=== PATIENT | female | born 2000 | race Caucasian/White ===

== ENCOUNTER 2021-03-30 07:02 | Emergency (ER) | payer BC, SELFPAY ==
--- NOTE | ~2021-03-30 | CT_ITS ---
EXAMINATION: CT ABDOMEN AND PELVIS WITHOUT CONTRAST CLINICAL INFORMATION: Right lower quadrant pain COMPARISON: None TECHNIQUE: Multidetector volumetric imaging was performed from the superior aspect of the liver through the pubic symphysis. Sagittal and coronal reformatted images were obtained on the technologist's workstation. This CT examination was performed using dose optimization techniques as appropriate, variously including the following: *Automated exposure control *Adjustment of mA and/or kV according to patient size (this includes techniques or standardized protocols for targeted exams where dose is matched to indication/reason for exam; i.e. extremities or head) *Use of iterative reconstruction technique DLP: 390 mGy-cm FINDINGS: LUNG BASES: The visualized lung bases are unremarkable. There is minimal linear atelectasis present at the left base. No pleural or pericardial effusion. LIVER, GALLBLADDER, AND BILIARY TREE: The liver is normal in size, shape, and attenuation. No focal hepatic lesion or biliary ductal dilatation is present. The gallbladder is unremarkable with no evidence of radiopaque gallstones, gallbladder wall thickening, or obvious pericholecystic inflammatory changes. PANCREAS: Unremarkable. SPLEEN: Unremarkable. Small accessory spleen present. ADRENAL GLANDS: Unremarkable. KIDNEYS AND URETERS: The kidneys are normal in size, shape, and attenuation. No hydronephrosis, hydroureter, or calculi seen. No perinephric stranding. BLADDER: Unremarkable. GASTROINTESTINAL TRACT: The small and large bowel are unremarkable. The appendix is unremarkable. No free air identified. There is a small amount of free fluid seen about the pelvis. ABDOMINAL WALL: No significant hernia is appreciated. LYMPH NODES: Normal. VASCULAR: Unremarkable. PELVIC VISCERA: There is a small amount of free fluid seen within the pelvis. No significant abnormality of the adnexa identified. OSSEOUS STRUCTURES: Unremarkable. CT/CT abdomen pelvis wo con IMPRESSION: Small amount of free fluid seen within the pelvis. No evidence of obstructive uropathy. No evidence of acute appendicitis. Cannot exclude ruptured adnexal cyst as source of pain and small amount of fluid within the pelvis. Fleischner guidelines were followed.
[2021-03-30 07:08] VITALS: BP 133/84; PULSE 119; RESP 19; TEMP 37.5; O2SAT 98; BMI 22.0
--- NOTE | 2021-03-30 07:46 | ED_ITS ---
HPI - Abdominal Pain General Chief Complaint: Abdominal Pain Stated Complaint: abd pain Time Seen by Provider: 03/30/21 07:24 Source: patient Mode of arrival: ambulatory Limitations: no limitations History of Present Illness HPI narrative: 20-year-old female came in for evaluation of abdominal pain. Right abdominal pain started last night, pain is radiating to the carter lower abdomen, pain is described as dull aching pain, moderate in severity 09/25, patient also been having frequency and painful urination, patient take her own left over Bactrim antibiotic and was seen by her PCP yesterday urine culture was taking and patient did not have antibiotic until the culture come back. Patient declined fever, chills, nausea, vomiting, or diarrhea. No aggravating factor, no relieving factor. Related Data Allergies Allergy/AdvReac Type Severity Reaction Status Date / Time amoxicillin Allergy Hives Verified 03/30/21 08:43 Penicillins Allergy Hives Verified 03/30/21 08:43 Review of Systems Review of Systems All other systems are reviewed and are negative Constitutional: Reports as per HPI and Reports no additional constitutional complaints Eyes: Reports as per HPI and Reports no additional eye complaints Reports system reviewed and no additional complaints, except as documented Cardiovascular: Reports as per HPI and Reports no additional cardiovascular complaints Respiratory: Reports as per HPI and Reports no additional respiratory complaints Gastrointestinal: Reports as per HPI and Reports no additional gastrointestinal complaints Genitourinary: Reports no additional female genitourinary complaints Musculoskeletal: Reports no additional musculoskeletal complaints Skin/Breast: Reports system reviewed and no additional complaints, except as docu Psychiatric: Reports no additional psychiatric complaints Endocrine: Reports no additional endocrine complaints Hematologic/Lymphatic: Reports no additional hematologic/lymphatic complaints Allergic/Immunologic: Reports no additional allergic/immunologic complaints Reports system reviewed and no additional complaints, except as documented and Reports Abnormal speech present Physical Exam Vital Signs: Vital Signs: Last Vital Signs Temp 99 F 03/30/21 12:05 Pulse 97 03/30/21 12:05 Resp 15 03/30/21 12:05 BP 102/55 L 03/30/21 12:05 Pulse Ox 98 03/30/21 12:05 BMI result Body Mass Index 22.0 Vital signs have been reviewed as appeared to be correct. Blood pressure normal. Heart rate elevated. Respiration rate normal. Temperature normal. Oxygen saturation normal. Appearance: Alert. Oriented X3. No acute distress. Head: Normal external exam. Normocephalic. Atraumatic. No Bustillos signs noted. No raccoon eyes noted Eyes: PERRLA. EOMI. Conjunctiva and sclera normal. Eyelids normal. ENT: TM's Normal. Pharynx normal. Uvula midline. Moist mucous membranes. No trismus noted. No drooling noted. No muffled voice noted. Neck: Normal inspection. Neck supple. FROM. No adenopathy. Thyroid Normal. No meningeal signs. No neck mass noted. CVS: Normal heart rate and rhythm. Heart sound normal. No murmurs noted. Pulses normal throughout. Respiratory: No respiratory distress. Painless inspiration. Breath sounds norm al. No wheezes/rales/rhonchi noted. Chest nontender. No accessory muscle usage noted or decreased air movement noted. Abdomen: Suprapubic tenderness, no guarding, no rebound tenderness. Bowel soun ds normal in all 4 quadrants. No distention noted. No organomegaly noted. No visible injury noted. Pelvic exam: Was deferred. Back: No CVA tenderness. Full range of motion noted. Skin: Skin warm and dry. Normal skin color. Normal skin turgor. No rashes/lesions/lacerations noted. Extremities: No lower extremity edema. Extremities exhibit normal range of motion. Extremities nontender. Neuro: Oriented X 3. Cranial nerve exam: II-XII are grossly intact No motor deficit. No sensory deficit. Reflexes normal. Course Course Course Narrative: Assessment and plan. 20-year-old female came in for evaluation of dysuria for, urinary frequency, and lower abdominal pain. Patient took her own leftover antibiotics., urine appeared clean today as discussed with the patient will await for urine culture. The CT finding of free fluid in the pelvis could be suggestive for ruptured ovarian cyst which is consistent with the history of the patient. Findings were discussed with the patient, patient was instructed to take Tylenol/ibuprofen if needed for pain. And follow-up with OBGYN. MDM - Abdominal Pain Medical Records Attestation: I reviewed the patient's medical records. Lab Data Attestation: I reviewed the patient's lab results. Result diagrams: 03/30/21 07:58 03/30/21 07:58 Labs: Lab Results 03/30/21 03/30/21 03/30/21 Range/Units 07:58 07:58 07:58 WBC 8.7 (4.8-10.8) X10*3/uL RBC 4.58 (4.20-5.50) X10*6/uL Hgb 14.5 (12.0-16.0) g/dl Hct 42.6 (37.0-47.0) % MCV 93.0 (80.0-98.0) fL MCH 31.7 (27.0-33.0) pg MCHC 34.0 (31.0-35.0) g/dl RDW 11.7 (11.0-16.0) % Plt Count 227 (160-400) X10*3/uL MPV 9.5 (9.4-12.3) fL Immature Gran % (Auto) 0.5 H (0.0-0.4) % Neut % (Auto) 87.4 H (45-73) % Lymph % (Auto) 5.6 L (20-40) % Gentry % (Auto) 6.0 (2-11) % Eos % (Auto) 0.3 (0-4) % Baso % (Auto) 0.2 (0-2) % Lymph # (Auto) 0.5 L (1.2-4.9) X10*3/uL Gentry # (Auto) 0.5 (0.1-1.2) X10*3/uL Eos # (Auto) 0.0 (0.0-0.4) X10*3/uL Baso # (Auto) 0.0 (0.0-0.2) X10*3/uL Abs Immat Gran (auto) 0.04 H (0.00-0.03) X10*3/uL Absolute Neuts (auto) 7.6 (2.0-8.3) x10*3/uL Absolute Nucleated RBC 0.000 (0.0-0.012) X10*3/uL Nucleated RBC % (auto) 0.0 (0.0-0.2) /100WBC Sodium 139 (135-145) mmol/L Potassium 4.5 (3.3-5.1) mmol/L Chloride 109 H (96-108) mmol/L Carbon Dioxide 22 (22-29) mmol/L Anion Gap 13 (12-20) BUN 12 (9-16) mg/dL Creatinine 0.91 (0.5-1.4) mg/dL Estim Creat Clear Calc 100.3 Estimated GFR > 60 Random Glucose 99 (60-115) mg/dL Lactic Acid (0.5-2.0) mmol/L Calcium 9.3 (8.4-10.2) mg/dL Total Bilirubin 0.9 (0.0-1.0) mg/dL Direct Bilirubin 0.3 (0.0-0.5) mg/dL AST 26 (5-31) U/L ALT 37 H (0-31) U/L Alkaline Phosphatase 72 (39-117) U/L Total Protein 6.7 (6.5-8.0) g/dL Albumin 4.2 (3.5-5.0) g/dL Lipase 42 (8-78) U/L Urine Color YELLOW Urine Appearance HAZY Urine pH 6.0 (5.0-8.0) Ur Specific Sumner 1.025 (1.005-1.025) Urine Protein TRACE (NEG-TRACE) MG/DL Urine Glucose (UA) NEG (NEG) MG/DL Urine Ketones NEG (NEG) MG/DL Urine Blood TRACE (NEG) Urine Nitrite NEG (NEG) Ur Leukocyte Esterase NEG (NEG) Urine RBC 0 (0) /HPF Urine WBC 0-2 (0-4) /HPF Ur Squamous Epith Cells 2+ /LPF Urine Bacteria TRACE /LPF Urine Test (NEGATIVE) Chlam trachomat DNA PCR (Not Detect.) N.gonorrhoeae DNA (PCR) (Not Detect.) 03/30/21 03/30/21 03/30/21 Range/Units 07:58 07:58 07:58 WBC (4.8-10.8) X10*3/uL RBC (4.20-5.50) X10*6/uL Hgb (12.0-16.0) g/dl Hct (37.0-47.0) % MCV (80.0-98.0) fL MCH (27.0-33.0) pg MCHC (31.0-35.0) g/dl RDW (11.0-16.0) % Plt Count (160-400) X10*3/uL MPV (9.4-12.3) fL Immature Gran % (Auto) (0.0-0.4) % Neut % (Auto) (45-73) % Lymph % (Auto) (20-40) % Gentry % (Auto) (2-11) % Eos % (Auto) (0-4) % Baso % (Auto) (0-2) % Lymph # (Auto) (1.2-4.9) X10*3/uL Gentry # (Auto) (0.1-1.2) X10*3/uL Eos # (Auto) (0.0-0.4) X10*3/uL Baso # (Auto) (0.0-0.2) X10*3/uL Abs Immat Gran (auto) (0.00-0.03) X10*3/uL Absolute Neuts (auto) (2.0-8.3) x10*3/uL Absolute Nucleated RBC (0.0-0.012) X10*3/uL Nucleated RBC % (auto) (0.0-0.2) /100WBC Sodium (135-145) mmol/L Potassium (3.3-5.1) mmol/L Chloride (96-108) mmol/L Carbon Dioxide (22-29) mmol/L Anion Gap (12-20) BUN (9-16) mg/dL Creatinine (0.5-1.4) mg/dL Estim Creat Clear Calc Estimated GFR Random Glucose (60-115) mg/dL Lactic Acid 0.9 (0.5-2.0) mmol/L Calcium (8.4-10.2) mg/dL Total Bilirubin (0.0-1.0) mg/dL Direct Bilirubin (0.0-0.5) mg/dL AST (5-31) U/L ALT (0-31) U/L Alkaline Phosphatase (39-117) U/L Total Protein (6.5-8.0) g/dL Albumin (3.5-5.0) g/dL Lipase (8-78) U/L Urine Color Urine Appearance Urine pH (5.0-8.0) Ur Specific Sumner (1.005-1.025) Urine Protein (NEG-TRACE) MG/DL Urine Glucose (UA) (NEG) MG/DL Urine Ketones (NEG) MG/DL Urine Blood (NEG) Urine Nitrite (NEG) Ur Leukocyte Esterase (NEG) Urine RBC (0) /HPF Urine WBC (0-4) /HPF Ur Squamous Epith Cells /LPF Urine Bacteria /LPF Urine Test NEGATIVE (NEGATIVE) Chlam trachomat DNA PCR NOT DETECTED (Not Detect.) N.gonorrhoeae DNA (PCR) NOT DETECTED (Not Detect.) Imaging Data CT scan - abdomen: Attestation: I personally reviewed and interpreted this imaging study as follows: Radiologist's impression: Small amount of free fluid seen within the pelvis. ?No evidence of obstructive uropathy. ?No evidence of acute appendicitis. ?Cannot exclude ruptured adnexal cyst as source of pain and small amount of fluid within the pelvis.? Discharge Plan Discharge Clinical Impression: Abdominal pain, Dysuria, Ovarian cyst Patient Disposition: Home, Self-Care Instructions: Ovarian Cyst (ED) Referrals: Susannah Orellana DO [Primary Care Provider] - 2 days Stand Alone Forms: Work/School Release [facility] Social History Social History Alcohol intake: never Patient Tobacco Use Status: Never used Tobacco Use of substances other than those prescribed or required for medical reasons: No Advance Directives: No Advance Directives Information Provided: Yes Patient : No
[2021-03-30 08:11] LABS: MANUAL DIFF FLAG NO
[2021-03-30 08:14] LABS: Appearance Urine HAZY; Basophils Percent Auto 0.2 % (0-2); Color Urine YELLOW; Eosinophils Percent Auto 0.3 % (0-4); Glucose Urine UA NEG (NEG); Hematocrit 42.6 % (37.0-47.0); Hemoglobin 14.5 g/dl (12.0-16.0); Imm Gran Abs Auto 0.04 X10*3/uL (0.00-0.03); Imm Gran Pct Auto 0.5 % (0.0-0.4); Leukocyte Esterase Urine NEG (NEG); Lymphocytes Absolute Auto 0.5 X10*3/uL (1.2-4.9); Lymphocytes Percent Auto 5.6 % (20-40); Mean Corpuscular Hemoglobin 31.7 pg (27.0-33.0); Mean Platelet Volume 9.5 fL (9.4-12.3); Monocytes Absolute Auto 0.5 X10*3/uL (0.1-1.2); Neutrophils Absolute Auto 7.6 x10*3/uL (2.0-8.3); Neutrophils Percent Auto 87.4 % (45-73); Nitrite Urine NEG (NEG); Platelet Count 227 X10*3/uL (160-400); Red Blood Count 4.58 X10*6/uL (4.20-5.50); Red Cell Distribution Width 11.7 % (11.0-16.0); Specific Gravity - Urine 1.025 (1.005-1.025); UACC Culture Trigger NO; Urine Blood TRACE (NEG); Urine Ketones NEG (NEG); Urine Protein TRACE MG/DL (NEG-TRACE); White Blood Count 8.7 X10*3/uL (4.8-10.8)
[2021-03-30 08:17] LABS: UPreg QC Valid YES; Urine Pregnancy NEGATIVE (NEGATIVE)
[2021-03-30 08:26] VITALS: BP 155/61; PULSE 117; RESP 18; TEMP 37.7; O2SAT 99
[2021-03-30 08:30] LABS: Lactic Acid 0.9 mmol/L (0.5-2.0)
[2021-03-30 08:40] LABS: Alanine Aminotransferase 37 U/L (0-31); Albumin Level 4.2 g/dL (3.5-5.0); Alkaline Phosphatase 72 U/L (39-117); Aspartate Amino Transferase 26 U/L (5-31); Bilirubin Direct 0.3 mg/dL (0.0-0.5); Bilirubin Total 0.9 mg/dL (0.0-1.0); Blood Urea Nitrogen 12 mg/dL (9-16); Calcium 9.3 mg/dL (8.4-10.2); Creatinine Clr Calc Pharmacy 100.3; Estimated Glomerular Filt Rate > 60; Glucose Random 99 mg/dL (60-115); Lipase 42 U/L (8-78); Total Protein 6.7 g/dL (6.5-8.0)
[2021-03-30 08:48] LABS: Anion Gap 13 (12-20); Carbon Dioxide 22 mmol/L (22-29); Chloride 109 mmol/L (96-108); Potassium 4.5 mmol/L (3.3-5.1); Sodium 139 mmol/L (135-145)
[2021-03-30] MEDS: 0.9 % Sodium Chloride 1,000 ML 999 ML IV (09:14)
[2021-03-30 09:43] LABS: Bacteria Urine TRACE /LPF; RBC Urine 0 /HPF (0); Squamous Epithelial Cell Urine 2+ /LPF; WBC Urine 0-2 /HPF (0-4)
[2021-03-30] MEDS: Nitrofurantoin Monohyd/M-Cryst 100 MG CAPSULE PO (10:02)
[2021-03-30] MEDS: Ketorolac Tromethamine 30 MG/ML VIAL IVPUSH (10:12)
[2021-03-30 10:32] LABS: CT PCR NOT DETECTED (Not Detect.); NG PCR NOT DETECTED (Not Detect.)
[2021-03-30 10:48] VITALS: BP 125/49; PULSE 99; RESP 15; TEMP 37.1; O2SAT 97
[2021-03-30 12:05] VITALS: BP 102/55; PULSE 97; RESP 15; TEMP 37.2; O2SAT 98
== END 2021-03-30 13:02 | disposition home or self-care (01) ==
PROVIDERS: Student in an Organized Health Care Education/Training Program; Emergency Provider Emergency Medicine; PCP Pediatrics
DX: R10.9 Unspecified abdominal pain (principal); R30.0 Dysuria; N83.209 Unspecified ovarian cyst, unspecified side
CPT/HCPCS: 36415; 74176; 80048; 80076; 81001; 81025; 83605; 83690; 85025; 87040; 87491; 87591; 96361; 96374; 99284; 99285; J1885

== ENCOUNTER 2022-02-28 17:51 | Emergency (ER) | payer OTHER, SELFPAY ==
--- NOTE | ~2022-02-28 | US_ITS ---
EXAMINATION: US appendix CLINICAL INFORMATION: Reason for Exam Epigastric/LLQ/RLQ abd pain COMPARISON: None. TECHNIQUE: Limited ultrasound for evaluation the appendix was performed. FINDINGS: Appendix not visualized sonographically. No free fluid identified in the right lower quadrant. Grossly unremarkable appearance of the right ovary measuring approximately 2 cm in size-Limited assessment. US/US appendix IMPRESSION: 1. Appendix not visualized sonographically. If continued high clinical concern for acute appendicitis suggest CT with contrast for evaluation. 2. No free fluid identified in the right lower quadrant.
--- NOTE | ~2022-02-28 | US_ITS ---
EXAMINATION: US ABDOMEN COMPLETE CLINICAL INFORMATION: Epigastric pain, left lower quadrant pain, right lower abdominal pain. COMPARISON: Ultrasound appendix earlier today. CT abdomen pelvis 03/30/2021 TECHNIQUE: Real-time imaging of the abdominal viscera. FINDINGS: PANCREAS: The pancreas appears unremarkable, without masses or ductal dilatation, with the exception of the tail which is obscured by bowel gas. ABDOMINAL AORTA: The proximal, mid, and distal segments are normal in caliber. INFERIOR VENA CAVA: Visualized portions are normal. LIVER: The liver is normal in size. The liver contour is normal. Parenchymal echogenicity is normal. No focal hepatic lesion. There is no intrahepatic biliary duct dilatation seen. GALLBLADDER: The gallbladder is physiologically distended without evidence of stones, sludge, polyps, wall thickening or pericholecystic fluid. COMMON BILE DUCT: Normal in caliber measuring 0.2 cm in diameter. RIGHT KIDNEY: No hydronephrosis. No renal calculi or focal parenchymal lesions. The kidney measures 11.7 cm in maximum dimension. LEFT KIDNEY: No hydronephrosis. No renal calculi or focal parenchymal lesions. The kidney measures 11.4 cm in maximum dimension. SPLEEN: Normal. The spleen measures 11.0 cm in maximum dimension. FREE FLUID: None. US/US abdomen complete IMPRESSION: No significant abnormality is seen.
[2022-02-28 19:19] VITALS: BP 125/59; PULSE 105; RESP 18; TEMP 36.9; O2SAT 99; BMI 20.5
--- NOTE | 2022-02-28 19:19 | ED_ITS ---
HPI - Abdominal Pain General Chief Complaint: Nausea/Vomiting/Diarrhea <JACQUES Taylor - Last Filed: 02/28/22 19:24> Stated Complaint: Abd pain/Vomiting <JACQUES Taylor - Last Filed: 02/28/22 19:24> Time Seen by Provider: 03/01/22 01:43 <JACQUES Taylor - Last Filed: 02/28/22 19:24> Source: patient <Archie Duran MD - Last Filed: 03/01/22 04:47> Mode of arrival: ambulatory <Archie Duran MD - Last Filed: 03/01/22 04:47> Limitations: no limitations <Archie Duran MD - Last Filed: 03/01/22 04:47> History of Present Illness HPI narrative: 21-year-old female who presents emergency department for evaluation of nausea, vomiting abdominal pain x2 days. Patient states that yesterday she developed lower abdominal pain, she points to her left lower and right lower quadrant when asked to localize the pain. She describes the pain is a constant, pressure-like pain and also as a sharp component. She also feels bloated. The pain waxes and wanes in intensity and is 9/10 at its worst and 5/10 out at the time of my evaluation. She denied fever but did have chills. She denied rhinorrhea, sore throat, cough, chest pain. She does feel short of breath. She complained of myalgias and arthralgias. Patient states that she did have a ruptured ovarian cyst the past she is concerned that her pain may be related to ovarian cyst. She is also concerned that she may have a stomach virus, she states that she has had several family members have been ill with flu-like illnesses. <Archie Duran MD - Last Filed: 03/01/22 04:47> Related Data Home Medications: Previous Rx's Medication Instructions Recorded ondansetron 4 mg disintegrating 4 mg PO Q6-8H PRN nausea and 03/01/22 tablet vomiting #14 tabs <JACQUES Taylor - Last Filed: 02/28/22 19:24> Allergies/Adverse Reactions: Allergies Allergy/AdvReac Type Severity Reaction Status Date / Time amoxicillin Allergy Hives Verified 03/30/21 08:43 Penicillins Allergy Hives Verified 03/30/21 08:43 <JACQUES Taylor - Last Filed: 02/28/22 19:24> Review of Systems Review of Systems Yes all other systems are reviewed and are negative <Archie Duran MD - Last Filed: 03/01/22 04:47> [facility] Past Medical History [facility] Narrative: Past medical history: Ruptured ovarian cyst 04/2021. Past surgical history: None. 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 She denies tobacco, alcohol and drug use. <Archie Duran MD - Last Filed: 03/01/22 04:47> Social History Social History: Social History Alcohol intake: never Patient Tobacco Use Status: Never used Tobacco Advance Directives: No Advance Directives Information Provided: No <JACQUES Taylor - Last Filed: 02/28/22 19:24> Physical Exam ED Vital Signs: Vital Signs - 24 hr 02/28/22 19:19 02/28/22 23:42 03/01/22 04:00 Temperature 98.5 F 98.0 F 97.5 F Pulse Rate 105 H 97 84 Respiratory Rate 18 16 17 Blood Pressure 125/59 L 121/67 107/66 Pulse Oximetry 99 98 96 Oxygen Delivery Method Room Air Room Air Room Air BMI result Body Mass Index 20.5 <JACQUES Taylor - Last Filed: 02/28/22 19:24> Vital Signs - 24 hr 02/28/22 19:19 02/28/22 23:42 03/01/22 04:00 Temperature 98.5 F 98.0 F 97.5 F Pulse Rate 105 H 97 84 Respiratory Rate 18 16 17 Blood Pressure 125/59 L 121/67 107/66 Pulse Oximetry 99 98 96 Oxygen Delivery Method Room Air Room Air Room Air BMI result Body Mass Index 20.5 <Archie Duran MD - Last Filed: 03/01/22 04:47> Const General: cooperative and no acute distress <Archie Duran MD - Last Filed: 04:47> Orientation/consciousness: oriented to person and oriented to place <Archie Duran MD - Last Filed: 03/01/22 04:47> Limitations: no limitations <MD Vladimir Doll Last Filed: 03/01/22 04:47> HENMT Head: Yes normal to inspection, Yes normocephalic and Yes atraumatic <MD Vladimir Doll Last Filed: 03/01/22 04:47> Ears: external ears normal <MD Vladimir Doll Last Filed: 03/01/22 04:47> General nose exam: Normal external nose present <MD Vladimir Doll Last Filed: 03/01/22 04:47> Face and sinus: Yes normal facial exam <MD Vladimir Doll Last Filed: 03/01/22 04:47> Mouth: Normal oral and palatal mucosa present <MD Vladimir Doll Last Filed: 03/01/22 04:47> Throat: Yes posterior oropharynx normal <MD Vladimir Doll Last Filed: 03/01/22 04:47> Eyes General: appearance normal, both eyes and all related structures <MD Vladimir Doll Last Filed: 03/01/22 04:47> Neck Neck: Yes normal visual inspection, Yes no lymphadenopathy, Yes trachea midline and Yes supple <MD Vladimir Doll Last Filed: 03/01/22 04:47> Chest Chest palpation & inspection: normal inspection of the chest and normal palpation of entire chest wall <MD Vladimir Doll Last Filed: 03/01/22 04:47> Resp Effort & Inspection: normal respiratory effort and able to speak in complete sentences <MD Vladimir Doll Last Filed: 03/01/22 04:47> Auscultation: clear to auscultation bilaterally <MD Vladimir Doll Last Filed: 03/01/22 04:47> Cardio Rate: regular rate <MD Vladimir Doll Last Filed: 03/01/22 04:47> Rhythm: regular rhythm <MD Vladimir Doll Last Filed: 03/01/22 04:47> Heart sounds: S1 normal heart sound present, S2 normal heart sound present and no murmurs <Archie Duran MD - Last Filed: 03/01/22 04:47> GI Inspection: Yes normal to inspection <Archie Duran MD - Last Filed: 03/01/22 04:47> Palpation (GI): Soft to palpation, Tenderness to palpation present (GI) in the LLQ ([id number]) and in the RLQ ([id number]) and no guarding <Archie Duran MD - Last Filed: 03/01/22 04:47> Auscultation: normal bowel sounds <Archie Duran MD - Last Filed: 03/01/22 04:47> General: Yes no CVA tenderness <Archie Duran MD - Last Filed: 03/01/22 04:47> Back/Spine/Pelvis Back: no CVA tenderness <Archie Duran MD - Last Filed: 03/01/22 04:47> Skin General skin exam: no rashes or lesions noted <Archie Duran MD - Last Filed: 03/01/22 04:47> Neuro General: oriented to person and oriented to place <Archie Duran MD - Last Filed: 03/01/22 04:47> Extrem General: Yes normal to inspection <Archie Duran MD - Last Filed: 03/01/22 04:47> Psych Appearance: grossly normal <Archie Duran MD - Last Filed: 03/01/22 04:47> Speech and movement: Normal speech and movement present <MD Vladimir Doll Last Filed: 03/01/22 04:47> Affect: normal affect <MD Vladimir Doll Last Filed: 03/01/22 04:47> Attitude: cooperative <Archie Durna MD - Last Filed: 03/01/22 04:47> Course Course Course Narrative: 19:20pm - 21yoF presenting to the ED c /o of N/V and upper and lower abd pain since yesterday. Denies any other symptoms related to this. Plan: Labs, UA, test, COVID/RSV/flu swab, abdominal ultrasound along with appendix ultrasound. Patient is stable. Vital signs are stable. She will be sent back to the waiting room for further evaluation treatment into the main ER. <JACQUES Taylor - Last Filed: 02/28/22 19:24> 19:20pm - 21yoF presenting to the ED c /o of N/V and upper and lower abd pain since yesterday. Denies any other symptoms related to this. Plan: Labs, UA, test, COVID/RSV/flu swab, abdominal ultrasound along with appendix ultrasound. Patient is stable. Vital signs are stable. She will be sent back to the waiting room for further evaluation treatment into the main ER. 0216: 21-year-old female who presents emergency department for evaluation of nausea, vomiting and abdominal pain. Vital signs revealed an elevated pulse of 105 otherwise were unremarkable. Patient's abdominal exam did reveal right lower quadrant left lower quadrant tenderness. Laboratory evaluation revealed a normal CBC and CMP. Patient's test was negative. COVID-19, influenza and RSV were negative. Patient had abdominal ultrasound right lower quadrant ultrasound which was unremarkable. Patient's presentation is consistent with an acute viral illness I did discuss this with her. An IV will be started she will be treated with normal saline x1 L, Toradol 15 mg IV and Zofran 4 mg IV. 0443: The patient is feeling significantly better after the above treatment. Patient will be discharged home with a prescription for Zofran. She was given printed and verbal instructions. She was also given a school note. <Archie Duran MD - Last Filed: 03/01/22 04:47> Medical Decision Making Lab Data Result Diagrams: : 02/28/22 19:39 02/28/22 19:39 <JACQUES Taylor - Last Filed: 02/28/22 19:24> Labs: Lab Results 02/28/22 02/28/22 02/28/22 Range/Units 19:23 19:39 19:39 WBC 6.4 (4.8-10.8) X10*3/uL RBC 4.86 (4.20-5.50) X10*6/uL Hgb 15.5 (12.0-16.0) g/dl Hct 43.8 (37.0-47.0) % MCV 90.1 (80.0-98.0) fL MCH 31.9 (27.0-33.0) pg MCHC 35.4 H (31.0-35.0) g/dl RDW 11.8 (11.0-16.0) % Plt Count 259 (160-400) X10*3/uL MPV 9.7 (9.4-12.3) fL Immature Gran % (Auto) 0.3 (0.0-0.4) % Neut % (Auto) 68.0 (45-73) % Lymph % (Auto) 20.4 (20-40) % [place] % (Auto) 8.6 (2-11) % Eos % (Auto) 2.4 (0-4) % Baso % (Auto) 0.3 (0-2) % Lymph # (Auto) 1.3 (1.2-4.9) X10*3/uL [place] # (Auto) 0.6 (0.1-1.2) X10*3/uL Eos # (Auto) 0.2 (0.0-0.4) X10*3/uL Baso # (Auto) 0.0 (0.0-0.2) X10*3/uL Abs Immat Gran (auto) 0.02 (0.00-0.03) X10*3/uL Absolute Neuts (auto) 4.3 (2.0-8.3) x10*3/uL Absolute Nucleated RBC 0.000 (0.0-0.012) X10*3/uL Nucleated RBC % (auto) 0.0 (0.0-0.2) /100WBC PT 13.8 H (10.0-13.1) SEC INR 1.2 H (0.9-1.1) Sodium (135-145) mmol/L Potassium (3.3-5.1) mmol/L Chloride (96-108) mmol/L Carbon Dioxide (22-29) mmol/L Anion Gap (12-20) BUN (9-16) mg/dL Creatinine (0.5-1.4) mg/dL Estim Creat Clear Calc Estimated GFR Random Glucose (60-115) mg/dL Calcium (8.4-10.2) mg/dL Magnesium (1.6-2.6) mg/dL Total Bilirubin (0.0-1.0) mg/dL AST (5-31) U/L ALT (0-31) U/L Alkaline Phosphatase (39-117) U/L Total Protein (6.5-8.0) g/dL Albumin (3.5-5.0) g/dL Lipase (8-78) U/L Beta HCG, Quant mIU/mL Influenza Type A (PCR) NEGATIVE (Negative) Influenza Type B (PCR) NEGATIVE (Negative) RSV RNA Qual (PCR) NEGATIVE (Negative) SARS-CoV-2 RNA (RT-PCR) NEGATIVE (Negative) 02/28/22 02/28/22 Range/Units 19:39 19:39 WBC (4.8-10.8) X10*3/uL RBC (4.20-5.50) X10*6/uL Hgb (12.0-16.0) g/dl Hct (37.0-47.0) % MCV (80.0-98.0) fL MCH (27.0-33.0) pg MCHC (31.0-35.0) g/dl RDW (11.0-16.0) % Plt Count (160-400) X10*3/uL MPV (9.4-12.3) fL Immature Gran % (Auto) (0.0-0.4) % Neut % (Auto) (45-73) % Lymph % (Auto) (20-40) % [place] % (Auto) (2-11) % Eos % (Auto) (0-4) % Baso % (Auto) (0-2) % Lymph # (Auto) (1.2-4.9) X10*3/uL [place] # (Auto) (0.1-1.2) X10*3/uL Eos # (Auto) (0.0-0.4) X10*3/uL Baso # (Auto) (0.0-0.2) X10*3/uL Abs Immat Gran (auto) (0.00-0.03) X10*3/uL Absolute Neuts (auto) (2.0-8.3) x10*3/uL Absolute Nucleated RBC (0.0-0.012) X10*3/uL Nucleated RBC % (auto) (0.0-0.2) /100WBC PT (10.0-13.1) SEC INR (0.9-1.1) Sodium 138 (135-145) mmol/L Potassium 3.9 (3.3-5.1) mmol/L Chloride 106 (96-108) mmol/L Carbon Dioxide 25 (22-29) mmol/L Anion Gap 11 L (12-20) BUN 9 (9-16) mg/dL Creatinine 0.79 (0.5-1.4) mg/dL Estim Creat Clear Calc 109.7 Estimated GFR > 60 Random Glucose 94 (60-115) mg/dL Calcium 9.3 (8.4-10.2) mg/dL Magnesium 1.9 (1.6-2.6) mg/dL Total Bilirubin 0.9 (0.0-1.0) mg/dL AST 16 (5-31) U/L ALT 16 (0-31) U/L Alkaline Phosphatase 55 (39-117) U/L Total Protein 6.6 (6.5-8.0) g/dL Albumin 4.2 (3.5-5.0) g/dL Lipase 18 (8-78) U/L Beta HCG, Quant < 2 mIU/mL Influenza Type A (PCR) (Negative) Influenza Type B (PCR) (Negative) RSV RNA Qual (PCR) (Negative) SARS-CoV-2 RNA (RT-PCR) (Negative) <JACQUES Taylor - Last Filed: 02/28/22 19:24> Lab Results 02/28/22 02/28/22 02/28/22 Range/Units 19:23 19:39 19:39 WBC 6.4 (4.8-10.8) X10*3/uL RBC 4.86 (4.20-5.50) X10*6/uL Hgb 15.5 (12.0-16.0) g/dl Hct 43.8 (37.0-47.0) % MCV 90.1 (80.0-98.0) fL MCH 31.9 (27.0-33.0) pg MCHC 35.4 H (31.0-35.0) g/dl RDW 11.8 (11.0-16.0) % Plt Count 259 (160-400) X10*3/uL MPV 9.7 (9.4-12.3) fL Immature Gran % (Auto) 0.3 (0.0-0.4) % Neut % (Auto) 68.0 (45-73) % Lymph % (Auto) 20.4 (20-40) % [place] % (Auto) 8.6 (2-11) % Eos % (Auto) 2.4 (0-4) % Baso % (Auto) 0.3 (0-2) % Lymph # (Auto) 1.3 (1.2-4.9) X10*3/uL [place] # (Auto) 0.6 (0.1-1.2) X10*3/uL Eos # (Auto) 0.2 (0.0-0.4) X10*3/uL Baso # (Auto) 0.0 (0.0-0.2) X10*3/uL Abs Immat Gran (auto) 0.02 (0.00-0.03) X10*3/uL Absolute Neuts (auto) 4.3 (2.0-8.3) x10*3/uL Absolute Nucleated RBC 0.000 (0.0-0.012) X10*3/uL Nucleated RBC % (auto) 0.0 (0.0-0.2) /100WBC PT 13.8 H (10.0-13.1) SEC INR 1.2 H (0.9-1.1) Sodium (135-145) mmol/L Potassium (3.3-5.1) mmol/L Chloride (96-108) mmol/L Carbon Dioxide (22-29) mmol/L Anion Gap (12-20) BUN (9-16) mg/dL Creatinine (0.5-1.4) mg/dL Estim Creat Clear Calc Estimated GFR Random Glucose (60-115) mg/dL Calcium (8.4-10.2) mg/dL Magnesium (1.6-2.6) mg/dL Total Bilirubin (0.0-1.0) mg/dL AST (5-31) U/L ALT (0-31) U/L Alkaline Phosphatase (39-117) U/L Total Protein (6.5-8.0) g/dL Albumin (3.5-5.0) g/dL Lipase (8-78) U/L Beta HCG, Quant mIU/mL Influenza Type A (PCR) NEGATIVE (Negative) Influenza Type B (PCR) NEGATIVE (Negative) RSV RNA Qual (PCR) NEGATIVE (Negative) SARS-CoV-2 RNA (RT-PCR) NEGATIVE (Negative) 02/28/22 02/28/22 Range/Units 19:39 19:39 WBC (4.8-10.8) X10*3/uL RBC (4.20-5.50) X10*6/uL Hgb (12.0-16.0) g/dl Hct (37.0-47.0) % MCV (80.0-98.0) fL MCH (27.0-33.0) pg MCHC (31.0-35.0) g/dl RDW (11.0-16.0) % Plt Count (160-400) X10*3/uL MPV (9.4-12.3) fL Immature Gran % (Auto) (0.0-0.4) % Neut % (Auto) (45-73) % Lymph % (Auto) (20-40) % [place] % (Auto) (2-11) % Eos % (Auto) (0-4) % Baso % (Auto) (0-2) % Lymph # (Auto) (1.2-4.9) X10*3/uL [place] # (Auto) (0.1-1.2) X10*3/uL Eos # (Auto) (0.0-0.4) X10*3/uL Baso # (Auto) (0.0-0.2) X10*3/uL Abs Immat Gran (auto) (0.00-0.03) X10*3/uL Absolute Neuts (auto) (2.0-8.3) x10*3/uL Absolute Nucleated RBC (0.0-0.012) X10*3/uL Nucleated RBC % (auto) (0.0-0.2) /100WBC PT (10.0-13.1) SEC INR (0.9-1.1) Sodium 138 (135-145) mmol/L Potassium 3.9 (3.3-5.1) mmol/L Chloride 106 (96-108) mmol/L Carbon Dioxide 25 (22-29) mmol/L Anion Gap 11 L (12-20) BUN 9 (9-16) mg/dL Creatinine 0.79 (0.5-1.4) mg/dL Estim Creat Clear Calc 109.7 Estimated GFR > 60 Random Glucose 94 (60-115) mg/dL Calcium 9.3 (8.4-10.2) mg/dL Magnesium 1.9 (1.6-2.6) mg/dL Total Bilirubin 0.9 (0.0-1.0) mg/dL AST 16 (5-31) U/L ALT 16 (0-31) U/L Alkaline Phosphatase 55 (39-117) U/L Total Protein 6.6 (6.5-8.0) g/dL Albumin 4.2 (3.5-5.0) g/dL Lipase 18 (8-78) U/L Beta HCG, Quant < 2 mIU/mL Influenza Type A (PCR) (Negative) Influenza Type B (PCR) (Negative) RSV RNA Qual (PCR) (Negative) SARS-CoV-2 RNA (RT-PCR) (Negative) <Archie Duran MD - Last Filed: 03/01/22 04:47> Medications Administered Discontinued Medications Generic Name Dose Route Start Last Admin Trade Name Freq PRN Reason Stop Dose Admin Sodium Chloride 1,000 mls @ 999 mls/hr 03/01/22 02:05 03/01/22 03:29 Ns IV 03/01/22 03:05 Infused .Q1H1M STA Infusion Ketorolac Tromethamine 15 mg 03/01/22 02:05 03/01/22 02:28 Ketorolac Tromethamine 15 Mg/Ml Vial IVPUSH 03/01/22 02:06 15 mg ONCE STA Administration Ondansetron HCl 4 mg 03/01/22 02:05 03/01/22 02:28 Ondansetron Hcl 4 Mg/2 Ml Vial IVPUSH 03/01/22 02:06 4 mg ONCE ONE Administration <JACQUES Taylor - Last Filed: 02/28/22 19:24> Medications Administered Discontinued Medications Generic Name Dose Route Start Last Admin Trade Name Freq PRN Reason Stop Dose Admin Sodium Chloride 1,000 mls @ 999 mls/hr 03/01/22 02:05 03/01/22 03:29 Ns IV 03/01/22 03:05 Infused .Q1H1M STA Infusion Ketorolac Tromethamine 15 mg 03/01/22 02:05 03/01/22 02:28 Ketorolac Tromethamine 15 Mg/Ml Vial IVPUSH 03/01/22 02:06 15 mg ONCE STA Administration Ondansetron HCl 4 mg 03/01/22 02:05 03/01/22 02:28 Ondansetron Hcl 4 Mg/2 Ml Vial IVPUSH 03/01/22 02:06 4 mg ONCE ONE Administration <Archie Duran MD - Last Filed: 03/01/22 04:47> Discharge Plan Discharge Clinical Impression: Viral syndrome, Abdominal pain Vomiting Qualifiers: Vomiting type: unspecified Nausea presence: with nausea Qualified Code(s): R11.2 - Nausea with vomiting, unspecified <JACQUES Taylor - Last Filed: 02/28/22 19:24> Patient Disposition: Home, Self-Care <JACQUES Taylor - Last Filed: 02/28/22 19:24> Instructions: Acute Nausea and Vomiting (ED), Viral Syndrome (ED) <JACQUES Taylor - Last Filed: 02/28/22 19:24> Additional Instructions: Your blood work was unremarkable. Your COVID-19, RSV and influenza tests were negative. Your ultrasounds did not reveal a clear cause for your abdominal pain. Your symptoms are consistent with a viral illness. Take Zofran ODT 4 mg pills, 1 pill dissolved in your mouth every 8 hours as needed for nausea and vomiting. Take ibuprofen 200 mg pills, 3 pills every 6 hours as needed for pain. Take Tylenol (acetaminophen) 500 mg pills, 2 pills every 4 to 6 hours as needed for pain. Follow-up with your doctor in 2 days. Please return to the emergency department if your symptoms get worse or if you develop any symptoms that are concerning to you. Please see school note <JACQUES Taylor - Last Filed: 02/28/22 19:24> Prescriptions: New ondansetron 4 mg tablet,disintegrating 4 mg PO Q6-8H PRN (Reason: nausea and vomiting) Qty: 14 0RF <JACQUES Taylor - Last Filed: 02/28/22 19:24> Stand Alone Forms: Work/School Release <JACQUES Taylor - Last Filed: 02/28/22 19:24>
[2022-02-28 19:49] LABS: MANUAL DIFF FLAG NO
[2022-02-28 19:52] LABS: Basophils Percent Auto 0.3 % (0-2); Eosinophils Absolute Auto 0.2 X10*3/uL (0.0-0.4); Eosinophils Percent Auto 2.4 % (0-4); Hematocrit 43.8 % (37.0-47.0); Hemoglobin 15.5 g/dl (12.0-16.0); Imm Gran Abs Auto 0.02 X10*3/uL (0.00-0.03); Imm Gran Pct Auto 0.3 % (0.0-0.4); Lymphocytes Absolute Auto 1.3 X10*3/uL (1.2-4.9); Lymphocytes Percent Auto 20.4 % (20-40); Mean Corpuscular HGB Conc 35.4 g/dl (31.0-35.0); Mean Corpuscular Hemoglobin 31.9 pg (27.0-33.0); Mean Corpuscular Volume 90.1 fL (80.0-98.0); Mean Platelet Volume 9.7 fL (9.4-12.3); Monocytes Absolute Auto 0.6 X10*3/uL (0.1-1.2); Monocytes Percent Auto 8.6 % (2-11); Neutrophils Absolute Auto 4.3 x10*3/uL (2.0-8.3); Platelet Count 259 X10*3/uL (160-400); Red Blood Count 4.86 X10*6/uL (4.20-5.50); Red Cell Distribution Width 11.8 % (11.0-16.0); White Blood Count 6.4 X10*3/uL (4.8-10.8)
[2022-02-28 19:59] LABS: INTERNATIONAL NORM RATIO 1.2 (0.9-1.1); Prothrombin Time 13.8 SEC (10.0-13.1)
[2022-02-28 20:16] LABS: Influenza A PCR NEGATIVE (Negative); Influenza B PCR NEGATIVE (Negative); Resp Syncy Virus RNA Qual PCR NEGATIVE (Negative); SARS COV2 PCR INHOUSE NEGATIVE (Negative)
[2022-02-28 20:17] LABS: Alanine Aminotransferase 16 U/L (0-31); Albumin Level 4.2 g/dL (3.5-5.0); Alkaline Phosphatase 55 U/L (39-117); Anion Gap 11 (12-20); Aspartate Amino Transferase 16 U/L (5-31); Bilirubin Total 0.9 mg/dL (0.0-1.0); Blood Urea Nitrogen 9 mg/dL (9-16); Calcium 9.3 mg/dL (8.4-10.2); Carbon Dioxide 25 mmol/L (22-29); Chloride 106 mmol/L (96-108); Creatinine Clr Calc Pharmacy 109.7; Estimated Glomerular Filt Rate > 60; Glucose Random 94 mg/dL (60-115); Lipase 18 U/L (8-78); Magnesium 1.9 mg/dL (1.6-2.6); Potassium 3.9 mmol/L (3.3-5.1); Sodium 138 mmol/L (135-145); Total Protein 6.6 g/dL (6.5-8.0)
[2022-02-28 20:29] LABS: HCG Quantitative < 2 mIU/mL
[2022-02-28 23:42] VITALS: BP 121/67; PULSE 97; RESP 16; TEMP 36.7; O2SAT 98
[2022-03-01] MEDS: ondansetron HCL 4 MG/2 ML VIAL IVPUSH (02:28)
[2022-03-01] MEDS: 0.9 % Sodium Chloride 1,000 ML 999 ML IV (02:28)
[2022-03-01] MEDS: Ketorolac Tromethamine 15 MG/ML VIAL IVPUSH (02:28)
[2022-03-01 04:00] VITALS: BP 107/66; PULSE 84; RESP 17; TEMP 36.4; O2SAT 96
--- NOTE | 2022-03-01 04:54 | PC.NURSE ---
Pt self removed IV line. Area looks clean and dry with no discharge or irritation. Discharge instructions reviewed with pt. Pt verbalizes understanding.
== END 2022-03-01 04:56 | disposition home or self-care (01) ==
PROVIDERS: Physician Assistant Medical; Emergency Provider Emergency Medicine Emergency Medical Services; PCP Pediatrics
DX: B34.9 Viral infection, unspecified (principal); R10.30 Lower abdominal pain, unspecified; R11.2 Nausea with vomiting, unspecified; Z20.822 Contact with and (suspected) exposure to COVID-19; Z79.899 Other long term (current) drug therapy
CPT/HCPCS: 0241U; 36415; 76700; 76705; 80053; 83690; 83735; 84702; 85025; 85610; 96361; 96374; 96375; 99284; J1885; J2405

== ENCOUNTER 2022-08-03 12:27 | Outpatient (REF) | payer OTHER, SELFPAY ==
[2022-08-03 14:08] LABS: Hematocrit 46.3 % (37.0-47.0); Hemoglobin 16.2 g/dl (12.0-16.0); Mean Corpuscular Hemoglobin 32.6 pg (27.0-33.0); Mean Corpuscular Volume 93.2 fL (80.0-98.0); Mean Platelet Volume 9.9 fL (9.4-12.3); Platelet Count 313 X10*3/uL (160-400); Red Blood Count 4.97 X10*6/uL (4.20-5.50); Red Cell Distribution Width 11.8 % (11.0-16.0); White Blood Count 7.8 X10*3/uL (4.8-10.8)
[2022-08-03 14:18] LABS: Appearance Urine Clear; Color Urine Yellow; Glucose Urine UA Negative (Negative); Leukocyte Esterase Urine Negative (Negative); Nitrite Urine Negative (Negative); PH 5.5 (5.0-9.0); Specific Gravity - Urine >= 1.030 (1.005-1.025); UMIC TRIGGER UACC YES; Urine Blood Negative (Negative); Urine Ketones Negative (Negative); Urine Protein 30 (1+) mg/dL (Neg-Trace)
[2022-08-03 14:25] LABS: Bacteria Urine None Seen (None Seen); Hyaline Casts Urine 0-2 /LPF (0-2); RBC Urine 0-2 /HPF (0-2); WBC Urine 0-5 /HPF (0-5)
[2022-08-03 14:30] LABS: Alanine Aminotransferase 22 U/L (0-31); Albumin Level 4.6 g/dL (3.5-5.0); Alkaline Phosphatase 51 U/L (39-117); Anion Gap 11 (12-20); Aspartate Amino Transferase 17 U/L (5-31); Bilirubin Total 0.9 mg/dL (0.0-1.0); Blood Urea Nitrogen 12 mg/dL (9-16); Calcium 9.9 mg/dL (8.4-10.2); Carbon Dioxide 27 mmol/L (22-29); Chloride 109 mmol/L (96-108); Cholesterol 195 mg/dL; Estimated Glomerular Filt Rate > 60; Glucose Fasting 80 mg/dL (60-99); HDL Cholesterol 49 mg/dL; LDL Cholesterol Calculated 136 mg/dl; Potassium 4.4 mmol/L (3.3-5.1); Sodium 143 mmol/L (135-145); Total Protein 7.2 g/dL (6.5-8.0); Triglycerides 51 mg/dL
== END 2022-08-03 12:28 | disposition home or self-care (01) ==
LOC: HO.WFDLDS 12:27
PROVIDERS: Visit Provider Nurse Practitioner Family
DX: Z00.00 Encounter for general adult medical examination without abnormal findings (principal); Z20.2 Contact with and (suspected) exposure to infections with a predominantly sexual mode of transmission
CPT/HCPCS: 36415; 80053; 80061; 81001; 84443; 85027

== ENCOUNTER 2023-12-25 14:00 | Outpatient (REF) | payer OTHER, SELFPAY ==
[2023-12-28 02:39] LABS: TS Negative Control Passed; TS Panel A 0; TS Panel B 0; TS Positive Control Passed; TSpotTB Negative (Negative)
== END 2023-12-25 14:01 | disposition home or self-care (01) ==
LOC: HO.WFDLDS 14:00
PROVIDERS: Visit Provider Nurse Practitioner Family
DX: Z11.1 Encounter for screening for respiratory tuberculosis (principal)
CPT/HCPCS: 36415; 86481

== ENCOUNTER 2024-02-28 08:06 | Outpatient (AMB) | payer BC, SELFPAY ==
--- NOTE | 2024-02-28 08:08 | A.OFFPC_ITS ---
Vital Signs 02/28/24 08:13 Height 5 ft 8 in Weight 139 lb 4 oz BMI 21.2 BP 112/57 L Blood Pressure Location Rt brachial Position Sitting Respiration 16 Pulse 66 Pulse Source Pulse Oximeter Temp 98.6 F Temp Source Temporal Artery Scan Pulse Oximetry (%) 100 Oxygen Delivery Method Room Air Intake Visit Reasons: cpe Intake Note: patient here for CPE Cutter Aluminum Sheet Required: No Is last menstrual period known: Yes Last menstrual period: 02/11/24 Post menopausal: No Patient : No Allergies amoxicillin Allergy (Verified 02/28/24 08:18) Hives Penicillins Allergy (Verified 02/28/24 08:18) Hives Medication List - Last Reconciled 02/28/24 by Savanna Humphrey CNP clindamycin-benzoyl peroxide 1-5 % 1 appl topical QAM 30 days levonorgestrel-ethinyl estrad 0.1-20 mg-mcg (Vienva) 1 tab PO DAILY Tobacco use date assessed: 02/28/24 Dental Screening Dental Screen Date: 02/28/24 Did you have a dental visit in the last 12 months?: Yes Did you have a dental problem in the last 6 months where you did not have access to dental care?: No Was dental information given to patient?: Patient has dentist HPI HPI Comments History of Present Illness Details 23-year-old female presents for an exten ded physical exam. She has history of acne for which she uses clindamycin-benzoyl peroxide. She takes Yolande oral contraceptive daily. She notes constipation after she stopped vaping 4 days ago. Health Maintenance - Up-to-date flu vaccination for the . - Last Pap smear conducted a few months ago at [facility]: Normal. - Last tetanus immunization on 12/16/2012 ; eligible for an update. - Eye exam last conducted ry this year. - Oral health maintained with a dental v isit two months ago. - Regular exercise routine maintained ev roel other day. - No cigarette use; recent cessation of vaping after smoking for a year Social History - Engaged in regular exercise every othe r day. - Adheres to a healthy dietary regimen. - Former vaping habit, ceased four days ago, initially started a year ago. 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 - Sexually active with a single partner and uses oral contraceptives. She has no concern for STDs. - Occasional marijuana use every three t o four days. [facility] Medical History (Updated 02/28/24 @ 08:42 by Savanna Humphrey CNP) Ruptured ovarian cyst Family History (Updated 08/03/22 @ 12:30 by Sada Wasserman [facility] [address]) Brother Asthma Mental health disorder Mother Mental health disorder Paternal Grandfather Diabetes Father High cholesterol Maternal Grandfather High blood pressure Social History (Updated 08/03/22 @ 11:48 by Sada Wasserman [facility] [address]) Household Members: Family Housing: House Are you a primary client care representative to a significant other at home: No Do you presently have visiting nurse or other home services: No Alcohol intake: never Patient Tobacco Use Status: Never used Tobacco e-Cigarette/Vaping Use: Never Used service: No Current occupational status: employed 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 1. Little interest or pleasure in doing things: not at all 2. Feeling down, depressed, or hopeless: several days 3. Trouble falling or staying asleep, or sleeping too much: not at all 4. Feeling tired or having little energy: not at all 5. Poor appetite or overeating: not at all 6. Feeling bad about yourself - or that you are a failure or have let yourself o r your family down: several days 7. Trouble concentrating on things, such as reading the newspaper or watching television: not at all 8. Moving or speaking so slowly that other people could have noticed. Or the opposite - being so fidgety or restless that you have been moving around a lot more than usual: not at all 9. Thoughts that you would be better off or of hurting yourself in some way: not at all Total score: 2 Depression Screening Interpretation: Negative Depression Screening Done: Yes 51719 - PHQ-9 Billing: Yes Source: Developed by Drs. Fady Schwarz, Joan Velarde, Tc Aguilar and colleagues, with an educational jose from [employer]. Thrive Questionnaire Date Thrive assessed: 02/28/24 I am a: Patient What is your living situation today?: I have a steady place to live Within the past 12 months, did the food you bought not last and you didn't have the money to get more?: I choose not to answer this question Within the past 12 months, did you worry whether your food would run out before you got money to buy more?: I choose not to answer this question Do you have trouble paying for medicines?: No Do you have trouble getting transportation to medical appointments?: No Do you have trouble paying your heating and electricity bill?: No Do you have trouble taking care of your child, family member or friend?: No Do you have trouble with day-to-day activities such as bathing, preparing meals, shopping, managing finances, etc.?: No Are you currently unemployed and looking for a job?: No Are you interested in more education?: No Please select the resources that you would like help with: None Currently or been in a relationship where the following occur: No concerns reported THRIVE Score: 0 AUDIT C Alcohol Use Questionnaire (AUDIT-C) 1. How often do you have a drink containing alcohol?: Never Total Score: 0 Score Reviewed/Action Taken: Yes YARON-7 AMB Questionnaire YARON-7 Date YARON - 7 assessed: 02/28/24 Feeling nervous, anxious, or on edge: 1 = Several days Not being able to stop or control worryin = Not at all Worrying too much about different things: 1 = Several days Trouble relaxin = Not at all Being so restless that it is hard to sit still: 0 = Not at all Becoming easily annoyed or irritable: 0 = Not at all Feeling afraid as if something awful might happen: 0 = Not at all Total YARON-7 score (0-4 normal; 5-9 mild; 10-14 moderate; 15-21 severe): 2 Source: Developed by Drs. Fady Schwarz, Joan Velarde, Tc Aguilar and colleagues, with an educational jose from [employer]. YARON-7 Assessment Billing YARON-7 Assessment Tool: YARON-7 Assessment 48486 Review of Systems Const Details: Denies chills, Denies fatigue, Denies fever(s), Denies headache(s) and Denies weakness HEENT Denies change in vision, Denies dizziness, Denies headache(s), Denies hearing loss, Denies nasal congestion, Denies sinus pain, Denies sinus pressure and Denies sore throat Card Denies chest pain, Denies lightheadedness, Denies dyspnea and Denies other (palpitations) Resp Denies cough, Denies dyspnea and Denies wheezing GI Denies abdominal pain, Denies melena, Denies hematochezia, Denies change in bowel habits, Denies dyspepsia and Denies nausea Denies hematuria and Denies dysuria Musc Denies abnormal gait, Denies myalgias, Denies arthralgias, Denies numbness and Denies tingling Skin/Breast Denies rash, Denies unusual bruising and Denies wounds Neuro Denies abnormal gait, Denies dizziness, Denies headache(s), Denies memory loss, Denies numbness, Denies Sensory deficit (Neuro), Denies tingling and Denies weakness Psych Denies anxiety, Denies depression and Denies memory loss Endo Denies cold intolerance, Denies fatigue, Denies heat intolerance, Denies polydipsia and Denies polyuria Zenon/Lymph Denies easy bleeding and Denies easy bruising Aller/Immun Denies wheezing Physical exam (Primary Care) Vital Signs: Last Vital Signs Temp 98.6 F 02/28/24 08:13 Pulse 66 02/28/24 08:13 Resp 16 02/28/24 08:13 BP 112/57 L 02/28/24 08:13 Pulse Ox 100 02/28/24 08:13 Oxygen Delivery Method Room Air 02/28/24 08:13 BMI result Body Mass Index 21.2 Tobacco/Smoking Status: Tobacco use Status Tobacco use date assessed 02/28/24 02/28/24 08:13 Patient Tobacco Use Status Never used Tobacco 02/28/24 08:11 e-Cigarette/Vaping Use Never Used 02/28/24 08:11 PHQ-9: PHQ-9 Score PHQ-9: Total score 2 02/28/24 08:24 Depression Screening Interpretation: Negative Thrive Assessment: Date of Thrive Assessment Date Thrive assessed 02/28/24 02/28/24 08:11 Currently or been in a relationship where the following occur: No concerns reported Const Other: General: no acute distress, well developed, alert and awake Nutritional Appearance: well nourished Orientation/consciousness: patient oriented x3 [facility] Head: Yes normocephalic and Yes atraumatic Ears: hearing grossly normal bilaterally and TM's normal bilaterally General nose exam: Normal external nose present and Normal nares present Mouth: Normal oral and palatal mucosa present and moist mucous membranes Teeth and gingiva: dentition normal Throat: Yes oropharynx normal Eyes Pupils: Equal, round and reactive pupils present and Pupil accommodation reflex normal EOM: EOMs intact bilaterally Neck Neck: Yes normal visual inspection, Yes no lymphadenopathy and Yes trachea midline Thyroid: Thyroid normal Carotids: no bruits Lymphatic: no lymphadenopathy noted Chest Chest palpation & inspection: normal inspection of the chest Resp Effort & Inspection: normal respiratory effort Auscultation: clear to auscultation bilaterally Cardio Rate: regular rate Rhythm: regular rhythm Heart sounds: S1 normal heart sound present, S2 normal heart sound present, no gallops, no murmurs and no rubs Bruits: no abdominal aortic bruits and no carotid bruits GI Palpation (GI): No Abdominal aortic bruit present, Soft to palpation, nontender, No hepatosplenomegaly present and No Rebound tenderness present Auscultation: normal bowel sounds General: Yes no CVA tenderness Back/Spine/Pelvis Back: no CVA tenderness Cervical Spine: cervical ROM normal and No Cervical spine tenderness Thoracic/Lumbar Spine: thoraco-lumbar ROM normal, No pain with thoraco-lumbar ROM, No thoracic spinal tenderness and No lumbar spinal tenderness Skin General: warm and dry. Normal skin color. Normal skin turgor Lesions: no lesions Rashes: no rashes Trauma: no lacerations or abrasions Wounds: no wounds Nails: normal Neuro General: patient oriented x3, gait normal and CN's II-XI intact bilaterally Cranial nerves: Yes Equal, round and reactive pupils present Cognition (Neuro): normal cognition Gait exam (Neuro): Normal gait present Motor exam (neuro): 5/5 motor strength present throughout Sensory Exam: No Sensory deficit (Neuro) Deep tendon reflexes (DTR's): Right patellar reflex intensity grade: 2+ and Left patellar reflex intensity grade: 2+ Extrem General: Yes normal to inspection, No edema and No calf tenderness Psych Appearance: grossly normal Affect: normal affect Attitude: cooperative Thought process: Normal thought process present Immunizations Boostrix Tdap 2.5 Lf unit-8 mcg-5 Lf/0.5 mL intramuscular syringe Performing Provider: Savanna Humphrey CNP Performing Location: [facility] Administered by: Mindi Mccollum RN on 02/28/24 08:43 Dose Route Admin Location Dispensed Lot Number Expiration Date NDC [employer]or 0.5 mL IM Left Deltoid 0.5 mL [id number] 04/09/26 [id number] [employer] VIS Given Date VIS Provided VIS Publication Date 02/28/24 Single Vaccine 20 Eligibility Eligibility Date Funding Source Not [facility] Eligible 02/28/24 Private Coding Level of Care Code Est Pt Prev Care 18-39y(45288) Diagnoses Normal physical examination, routine Z00.00 Vaccine for tetanus toxoid Z23 Constipation K59.00 Laboratory tests ordered as part of a complete physical exam (CPE) Z00.00 Additional Codes YARON-7 Assessment Billing - YARON-7 Assessment Tool: YARON-7 Assessment 09122 ([id number]) PHQ-9 - 78686 - PHQ-9 Billing: Yes ([id number]) Assessment & Plan Assessment & Plan (1) Normal physical examination, routine: Code(s): Z00.00 - Encounter for general adult medical examination without abnormal findings Category: Medical Plan: No significant physical limitation noted. (2) Vaccine for tetanus toxoid: Code(s): Z23 - Encounter for immunization Category: Medical Plan: Administer tetanus immunization update during the current visit. (3) Constipation: Code(s): K59.00 - Constipation, unspecified Category: Medical Plan: Address constipation with adequate hydration, dietary adjustments, and consider magnesium supplementation if symptoms persist. (4) Laboratory tests ordered as part of a complete physical exam (CPE): Code(s): Z00.00 - Encounter for general adult medical examination without abnormal findin gs Category: Medical Plan: Fasting labs ordered as part of a complete physical exam. Advised to fast for at least 10 hours before getting labs drawn. May drink water Verbalized understanding and agreed with treatment plan. Plan During the consultation, I discussed the necessity for a tetanus immunization update, with the patient's last recorded shot being over ten years ago. We reviewed her current use of clindamycin and benzoyl peroxide for acne management. The cessation of vaping was acknowledged, and lifestyle modifications to address resulting constipation were discussed, including potential dietary changes and supplementation options. The importance of regular health maintenance visits and necessary screenings was emphasized. Finally, the patient agreed to receive the tetanus vaccine during this visit. Orders: Orders Complete Blood Count Auto Diff Today Z00.00 - Encounter for general adult medical examination without abnormal findings Lipid Panel Today Z00.00 - Encounter for general adult medical examination without abnormal findings UA CC w/rflx Micro + Cult Today Z00.00 - Encounter for general adult medical examination without abnormal findings TDaP Immunization Today Z23 - Encounter for immunization Comprehensive Collbran. Panel Fast Today Z00.00 - Encounter for general adult medical examination without abnormal findings TSH reflex Free T4 Today Z00.00 - Encounter for general adult medical examination without abnormal findings Patient Instructions: - Receive your tetanus vaccine today. - Consider adequate hydration, dietary adjustments or magnesium supplementation for constipation. - She has been fasting for at least 12 hours. She will get lab work done today and follow-up for telehealth visit in 2 weeks for labs review. - Continue using prescribed acne medication and oral contraceptive. - Maintain your exercise routine and healthy dietary habits. - Report any significant changes in health or if symptoms persist.
[2024-02-28 08:13] VITALS: BP 112/57; PULSE 66; RESP 16; TEMP 37; O2SAT 100; BMI 21.2
== END 2024-02-28 08:41 | disposition home or self-care (01) ==
PROVIDERS: PCP Nurse Practitioner Family; Visit Provider Nurse Practitioner Family
DX: Z00.00 Encounter for general adult medical examination without abnormal findings (principal); Z23 Encounter for immunization; K59.00 Constipation, unspecified

== ENCOUNTER → 2024-02-28 08:06 | Outpatient (BNVA) | payer BC, SELFPAY | PROVIDERS: PCP Nurse Practitioner Family; Visit Provider Nurse Practitioner Family | DX: Z00.01 Encounter for general adult medical examination with abnormal findings (principal); Z23 Encounter for immunization; K59.00 Constipation, unspecified | CPT/HCPCS: 90471; 90715; 96127 ==

== ENCOUNTER 2024-02-28 09:06 | Outpatient (REF) | payer BC, SELFPAY ==
[2024-02-28 11:39] LABS: MANUAL DIFF FLAG NO
[2024-02-28 11:45] LABS: Basophils Absolute Auto 0.1 X10*3/uL (0.0-0.2); Basophils Percent Auto 0.9 % (0-2); Eosinophils Absolute Auto 0.1 X10*3/uL (0.0-0.4); Eosinophils Percent Auto 1.4 % (0-4); Hematocrit 40.4 % (37.0-47.0); Hemoglobin 13.9 g/dl (12.0-16.0); Imm Gran Abs Auto 0.03 X10*3/uL (0.00-0.03); Imm Gran Pct Auto 0.5 % (0.0-0.4); Lymphocytes Absolute Auto 1.3 X10*3/uL (1.2-4.9); Lymphocytes Percent Auto 22.9 % (20-40); Mean Corpuscular HGB Conc 34.4 g/dl (31.0-35.0); Mean Corpuscular Hemoglobin 32.9 pg (27.0-33.0); Mean Corpuscular Volume 95.7 fL (80.0-98.0); Mean Platelet Volume 10.5 fL (9.4-12.3); Monocytes Absolute Auto 0.4 X10*3/uL (0.1-1.2); Monocytes Percent Auto 6.8 % (2-11); Neutrophils Absolute Auto 3.9 x10*3/uL (2.0-8.3); Neutrophils Percent Auto 67.5 % (45-73); Platelet Count 263 X10*3/uL (160-400); Red Blood Count 4.22 X10*6/uL (4.20-5.50); Red Cell Distribution Width 11.9 % (11.0-16.0); White Blood Count 5.7 X10*3/uL (4.8-10.8)
[2024-02-28 12:01] LABS: Alanine Aminotransferase 26 U/L (0-31); Albumin Level 4.2 g/dL (3.5-5.0); Alkaline Phosphatase 52 U/L (39-117); Anion Gap 10 (12-20); Aspartate Amino Transferase 29 U/L (5-31); Bilirubin Total 0.6 mg/dL (0.0-1.0); Blood Urea Nitrogen 7 mg/dL (9-16); Calcium 9.4 mg/dL (8.4-10.2); Carbon Dioxide 25 mmol/L (22-29); Chloride 108 mmol/L (96-108); Cholesterol 166 mg/dL (<200); Estimated Glomerular Filt Rate > 60; Glucose Fasting 77 mg/dL (60-99); HDL Cholesterol 48 mg/dL (>40); LDL Cholesterol Calculated 108 mg/dL (<100); Potassium 3.8 mmol/L (3.3-5.1); Sodium 139 mmol/L (135-145); Total Protein 6.6 g/dL (6.5-8.0); Triglycerides 53 mg/dL (<150)
[2024-02-28 12:20] LABS: TSH reflex Free T4 1.51 uIU/mL (0.32-4.0)
[2024-02-28 14:16] LABS: Appearance Urine Turbid; Color Urine Yellow; Glucose Urine UA Negative (Negative); Leukocyte Esterase Urine Negative (Negative); Nitrite Urine Negative (Negative); UMIC TRIGGER UACC YES; Urine Blood Negative (Negative); Urine Ketones Negative (Negative); Urine Protein 30 (1+) mg/dL (Neg-Trace)
[2024-02-28 14:21] LABS: Bacteria Urine None Seen (None Seen); Hyaline Casts Urine 0-2 /LPF (0-2); RBC Urine 0-2 /HPF (0-2); WBC Urine 0-5 /HPF (0-5)
== END 2024-02-28 09:07 | disposition home or self-care (01) ==
LOC: HO.WFDLDS 09:06
PROVIDERS: Visit Provider Nurse Practitioner Family
DX: Z00.00 Encounter for general adult medical examination without abnormal findings (principal)
CPT/HCPCS: 36415; 80053; 80061; 81001; 84443; 85025